=== PATIENT | female | born 1970 | race Caucasian/White ===

== ENCOUNTER 2016-11-23 09:49 | Day surgery (SDC) | payer OTHER ==
[~2016-11-23] VITALS: Ht 162.6 cm; Wt 100.0 kg
--- NOTE | 2016-11-27 13:29 | OR ---
ADMIT: 11/23/2016 RM/LOC: [facility] MR#: [id number] [id number] [address] [place] [address] Operative/Delivery Room Report SEX: F AGE: 46 : 1970 SURGERY DATE: 11/23/2016 SURGEON: Santiago Bryant MD PREOPERATIVE DIAGNOSIS: Chronic cholecystitis, possible cholelithiasis. POSTOPERATIVE DIAGNOSIS: Chronic cholecystitis, possible cholelithiasis. FINAL PATHOLOGY: Pending. PROCEDURE: Laparoscopic cholecystectomy. ANESTHESIA: General endotracheal tube anesthesia. ESTIMATED BLOOD LOSS: Less than 25 mL. SPECIMEN: Gallbladder to path. INDICATION FOR PROCEDURE: Please see H and P. After the risks, benefits, possible complications, and the alternatives have been explained, and informed consent had been obtained, the patient was taken back to the operating room, underwent general endotracheal tube anesthesia. The surgical field was prepped and draped in sterile manner. A supraumbilical incision was made. The Veress needle was inserted. The abdomen was insufflated with CO2. Once there was adequate insufflation, a 5-mm port was placed. The camera was placed through this port site. Under direct visualization, I placed a 10 mm epigastric, two 5 mm right upper quadrant ports. The gallbladder was grasped, raised superiorly and anteriorly, you can see in picture 1. Slowly dissected out the cystic duct coming directly off the gallbladder. The cystic artery was directly behind it. Once they were both dissected out nicely, I clipped them proximally, distally, and they were divided as seen in picture 2. The gallbladder was then removed from the liver bed using electrocautery and Endoshears. It was placed in an EndoCatch bag and removed through the epigastric port site. Inspecting the liver bed, there was good hemostasis. I irrigated and removed as much irrigation as possible. I then injected some 0.5% Marcaine for pain control. Closed the fascia of the epigastric port site with an 0-Polysorb suture using the suture passer, and then the skin was all closed with 4-0 Monocryl after the ports were all removed. Tolerated the procedure well, was extubated and taken to recovery room in stable and satisfactory condition. Santiago Bryant MD/ clarisa JOB #: [id number] CC: Santiago Bryant MD, Attending Physician NO FAMILY PHYSICIAN, Family Physician
== END 2016-11-23 18:00 | disposition home or self-care (01) ==
LOC: SSS 09:49
PROC: 0FT44ZZ Resection of Gallbladder, Percutaneous Endoscopic Approach (ICD-10-PCS; principal; 2016-11-23)
DX: K81.1 Chronic cholecystitis (principal); E78.5 Hyperlipidemia, unspecified; K21.9 Gastro-esophageal reflux disease without esophagitis; Z98.890 Other specified postprocedural states; Z90.710 Acquired absence of both cervix and uterus; Z88.6 Allergy status to analgesic agent; Z88.8 Allergy status to other drugs, medicaments and biological substances; Z79.899 Other long term (current) drug therapy